=== PATIENT | male | born 1990 | race Caucasian/White ===

== ENCOUNTER 2018-04-06 06:12 | Emergency (ER) | payer BC, OTHER ==
--- NOTE | 2018-04-06 06:29 | EDM.PDOC ---
ED HPI GENERAL MEDICAL PROBLEM - General Chief Complaint: Skin Complaint Stated Complaint: BUMP ON LEFT LEG Time Seen by Provider: 04/06/18 06:24 Source of Information: Reports: Patient - History of Present Illness INITIAL COMMENTS - FREE TEXT/NARRATIVE: HISTORY AND PHYSICAL: History of present illness: [Patient presents with a small mass lesion approximately 1/2 inch in diameter on his left lower extremity anterior surface just above the ankle, lesion is slightly reddened and tender nonfluctuant, nondraining no exudates for culture. Lesion is clinically consistent with a lipoma with surrounding cellulitis, patient denies any injury or trauma. Lesion developed insidiously over the last 2 weeks No fever nausea vomiting chills sweats no chest pain shortness breath headache dizziness palpitation no bowel or urine symptoms] Review of systems: As per history of present illness and below otherwise all systems reviewed and negative. Past medical history: As per history of present illness and as reviewed below otherwise noncontributory. Surgical history: As per history of present illness and as reviewed below otherwise noncontributory. Social history: No reported history of drug or alcohol abuse. Family history: As per history of present illness and as reviewed below otherwise noncontributory. Physical exam: HEENT: Atraumatic, normocephalic, pupils reactive, negative for conjunctival pallor or scleral icterus, mucous membranes moist, throat clear, neck supple, nontender, trachea midline. Lungs: Clear to auscultation, breath sounds equal bilaterally, chest nontender. Heart: S1S2, regular, negative for clicks, rubs, or JVD. Abdomen: Soft, nondistended, nontender. Negative for masses or hepatosplenomegaly. Negative for costovertebral tenderness. Pelvis: Stable nontender. Genitourinary: Deferred. Rectal: Deferred. Extremities: Atraumatic, negative for cords or calf pain. Neurovascular unremarkable. Neuro: Awake, alert, oriented. Cranial nerves II through XII unremarkable. Cerebellum unremarkable. Motor and sensory unremarkable throughout. Exam nonfocal. Diagnostics: [Clinical ] Therapeutics: [Bactrim double strength by mouth twice a day #20 no refill ] Impression: [Mass lesion consistent with lipoma, right lower extremity Cellulitis ] Definitive disposition and diagnosis as appropriate pending reevaluation and review of above. left lower leg Pain Score (Numeric/FACES): 5 - Related Data Allergies Allergy/AdvReac Type Severity Reaction Status Date / Time No Known Allergies Allergy Verified 04/06/18 06:20 Home Meds: Home Meds Sertraline HCl [Zoloft] 100 mg PO DAILY 04/06/18 [History] ED ROS GENERAL - Review of Systems Review Of Systems: See Below ED EXAM, SKIN/RASH Exam: See Below Course - Vital Signs Last Recorded V/S: Last Vital Signs Temp 97 F 04/06/18 06:20 Pulse 96 04/06/18 06:20 Resp 18 04/06/18 06:20 BP 137/66 04/06/18 06:20 Pulse Ox 98 04/06/18 06:20 Departure - Departure Time of Disposition: 06:28 Disposition: Home, Self-Care 01 Condition: Good Clinical Impression: Cellulitis - Discharge Information Referrals: Ceferino Pereyra MD [Primary Care Provider] - Additional Instructions: Medication as prescribed Return if symptoms persist or worsen Follow-up with general surgery in 2 weeks for reevaluation and consideration of biopsy [facility] - General Surgery [address], [address] [place] [address] The following information is given to patients seen in the emergency department who are being discharged to home. This information is to outline your options for follow-up care. We provide all patients seen in our emergency department with a follow-up referral. The need for follow-up, as well as the timing and circumstances, are variable depending upon the specifics of your emergency department visit. If you don't have a primary care physician on staff, we will provide you with a referral. We always advise you to contact your personal physician following an emergency department visit to inform them of the circumstance of the visit and for follow-up with them and/or the need for any referrals to a consulting specialist. The emergency department will also refer you to a specialist when appropriate. This referral assures that you have the opportunity for follow-up care with a specialist. All of these measure are taken in an effort to provide you with optimal care, which includes your follow-up. Under all circumstances we always encourage you to contact your private physician who remains a resource for coordinating your care. When calling for follow-up care, please make the office aware that this follow-up is from your recent emergency room visit. If for any reason you are refused follow-up, please contact the [facility] emergency department at and asked to speak to the emergency department charge nurse.
== END 2018-04-06 06:36 | disposition home or self-care (01) ==
LOC: MW.ED 06:12
DX: L03.116 Cellulitis of left lower limb (principal); Z79.899 Other long term (current) drug therapy
CPT/HCPCS: 99283

== ENCOUNTER 2018-05-01 21:38 | Emergency (ER) | payer OTHER ==
[2018-05-01] MEDS ORDERED: Morphine 2 MG/ML Syringe IVPUSH ONE (22:12)
[2018-05-01] MEDS ORDERED: Ondansetron 4 MG/2 ML SDV IVPUSH ONE (22:12)
[2018-05-01] MEDS ORDERED: Sodium Chloride 0.9% 1,000 ML IV ONE (22:12)
[2018-05-01] MEDS ORDERED: Sodium Chloride 0.9% 10 ML Syringe FLUSH PRN (22:12)
[2018-05-01] MEDS ORDERED: Sodium Chloride 0.9% 2.5 ML Syringe FLUSH PRN (22:12)
--- NOTE | 2018-05-01 22:16 | EDM.PDOC ---
ED HPI GENERAL MEDICAL PROBLEM - General Stated Complaint: PT VOMITING Time Seen by Provider: 05/01/18 22:07 - History of Present Illness INITIAL COMMENTS - FREE TEXT/NARRATIVE: HISTORY AND PHYSICAL: History of present illness: The patient is a 28-year-old male with a history of a abnormal mass or cyst on his CT scan of the head diagnosed in [place] and 2016 who is now living here locally and following with Dr. Ceferino Pereyra at the [facility] and presents with headaches that he has every day but today he had more nausea and vomiting. The patient says he does have headaches every day and the fact that he had a headache all day today was not new or different but he said this seemed to be more intense than his typical headaches and he had nausea and some vomiting which is also atypical. The patient has a history of a cholecystectomy and appendectomy and has acid reflux for which he takes daily Nexium. The doctor at the [facility] has been working this up and trying to get his medical records to see what the next steps are in treating this and he has already had a sleep apnea test and a vision test and he was not scheduled for any more imaging such as a repeat head CT or an MRI of his brain. The patient denies any trauma and has no other systemic complaints such as fever chills cough runny nose sore throat abdominal pain or diarrhea. He says that he usually only uses over-the- counter medications for his headaches and was never prescribed anything stronger. He is here because of concerns that something new is happening with this cyst/mass. The patient denies any new visual changes numbness or weakness to his extremities gait disturbances dizziness or lightheadedness. Review of systems: As per history of present illness and below otherwise all systems reviewed and negative. Past medical history: As per history of present illness and as reviewed below otherwise noncontributory. Surgical history: As per history of present illness and as reviewed below otherwise noncontributory. Social history: No reported history of drug or alcohol abuse. Family history: As per history of present illness and as reviewed below otherwise noncontributory. Physical exam: General: Well-developed well-nourished mildly overweight man who is nontoxic and ambulated into the ED without distress. Vital signs are noted by me HEENT: Atraumatic, normocephalic, pupils reactive, negative for conjunctival pallor or scleral icterus, mucous membranes moist, throat clear, neck supple, nontender, trachea midline. Lungs: Clear to auscultation, breath sounds equal bilaterally, chest nontender. Heart: S1S2, regular, negative for clicks, rubs, or JVD. Abdomen: Soft, nondistended, nontender. Negative for masses or hepatosplenomegaly. Negative for costovertebral tenderness. Pelvis: Stable nontender. Genitourinary: Deferred. Rectal: Deferred. Extremities: Atraumatic, negative for cords or calf pain. Neurovascular unremarkable. Neuro: Awake, alert, oriented. Cranial nerves II through XII unremarkable. Cerebellum unremarkable. Motor and sensory unremarkable throughout. Exam nonfocal. Diagnostics: CT scan of the head CBC CMP Therapeutics: IV fluids morphine Zofran Discussed with the patient all testing results and the fact that the CT scan of the head is not showing any swelling midline shift or mass unlike his history. I told him that he needs to call Dr. Pereyra in the morning and get more testing such as an MRI to help further delineate his underlying process but at this point I feel he is comfortable to go home. I told him that if he would like to get an MRI more quickly he can go to [facility] as we do not have capabilities here in the evenings. He is comfortable with following up with Dr. Pereyra and I will give him some tramadol and Zofran for home. Impression: Headache with vomiting, history of chronic headaches and abnormal CT stable Definitive disposition and diagnosis as appropriate pending reevaluation and review of above. headache Pain Score (Numeric/FACES): 9 - Related Data Allergies Allergy/AdvReac Type Severity Reaction Status Date / Time No Known Allergies Allergy Verified 05/01/18 22:18 Home Meds: Home Meds Sertraline HCl [Zoloft] 100 mg PO DAILY 04/06/18 [History] Past Medical History HEENT History: Reports: None Cardiovascular History: Reports: None Respiratory History: Reports: None Gastrointestinal History: Reports: None Genitourinary History: Reports: None Musculoskeletal History: Reports: None Neurological History: Reports: None Psychiatric History: Reports: Anxiety, Depression Endocrine/Metabolic History: Reports: None Hematologic History: Reports: None Immunologic History: Reports: None Oncologic (Cancer) History: Reports: None Dermatologic History: Reports: None - Infectious Disease History Infectious Disease History: Reports: None - Past Surgical History Head Surgeries/Procedures: Reports: None Respiratory Surgical History: Reports: None GI Surgical History: Reports: Appendectomy, Cholecystectomy Musculoskeletal Surgical History: Reports: Carpal Tunnel Social & Family History - Family History Family Medical History: Noncontributory - Caffeine Use Caffeine Use: Reports: Coffee, Energy Drinks, Soda, Tea ED ROS GENERAL - Review of Systems Review Of Systems: ROS reveals no pertinent complaints other than HPI. ED EXAM, GENERAL - Physical Exam Exam: See Below (See dictation) Course - Vital Signs Last Recorded V/S: Last Vital Signs Temp 37.5 C 05/01/18 22:18 Pulse 77 05/01/18 23:02 Resp 18 05/01/18 23:02 BP 140/90 05/01/18 23:02 Pulse Ox 95 05/01/18 23:02 - Orders/Labs/Meds Orders: Active Orders 24 hr Category Date Time Status Sodium Chloride 0.9% [Saline Flush] Med 05/01/18 22:12 Active 10 ml FLUSH ASDIRECTED PRN Sodium Chloride 0.9% [Saline Flush] Med 05/01/18 22:12 Active 2.5 ml FLUSH ASDIRECTED PRN Saline Lock Insert [OM.PC] Stat Oth 05/01/18 22:12 Ordered Medication Orders Sodium Chloride (Saline Flush) 10 ml FLUSH ASDIRECTED PRN PRN Reason: Keep Vein Open Last Admin: 05/01/18 22:34 Dose: 10 ml Sodium Chloride (Saline Flush) 2.5 ml FLUSH ASDIRECTED PRN PRN Reason: Keep Vein Open Last Admin: 05/01/18 22:34 Dose: 2.5 ml Labs: Laboratory Tests 05/01/18 05/01/18 Range/Units 22:34 22:34 WBC 8.95 (4.0-11.0) K/uL RBC 5.41 (4.50-5.90) M/uL Hgb 16.0 (13.0-17.0) g/dL Hct 45.2 (38.0-50.0) % MCV 83.5 (80.0-98.0) fL MCH 29.6 (27.0-32.0) pg MCHC 35.4 (31.0-37.0) g/dL RDW Std Deviation 38.8 (28.0-62.0) fl RDW Coeff of Zach 13 (11.0-15.0) % Plt Count 266 (150-400) K/uL MPV 9.70 (7.40-12.00) fL Neut % (Auto) 56.9 (48.0-80.0) % Lymph % (Auto) 33.2 (16.0-40.0) % Loving % (Auto) 7.5 (0.0-15.0) % Eos % (Auto) 2.2 (0.0-7.0) % Baso % (Auto) 0.2 (0.0-1.5) % Neut # (Auto) 5.1 (1.4-5.7) K/uL Lymph # (Auto) 3.0 H (0.6-2.4) K/uL Loving # (Auto) 0.7 (0.0-0.8) K/uL Eos # (Auto) 0.2 (0.0-0.7) K/uL Baso # (Auto) 0.0 (0.0-0.1) K/uL Nucleated RBC % 0.0 /100WBC Nucleated RBCs # 0 K/uL Sodium 137 (136-148) mmol/L Potassium 3.7 (3.5-5.1) mmol/L Chloride 102 (98-107) mmol/L Carbon Dioxide 25.3 (21.0-32.0) mmol/L BUN 13 (7.0-18.0) mg/dL Creatinine 1.0 (0.8-1.3) mg/dL Est Cr Clr Drug Dosing 109.98 mL/min Estimated GFR (MDRD) > 60.0 ml/min Glucose 125 H (74-106) mg/dL Calcium 9.3 (8.5-10.1) mg/dL Total Bilirubin 0.5 (0.2-1.0) mg/dL AST 25 (15-37) IU/L ALT 60 (14-63) IU/L Alkaline Phosphatase 78 (46-116) U/L Total Protein 7.7 (6.4-8.2) g/dL Albumin 3.8 (3.4-5.0) g/dL Globulin 3.9 (2.6-4.0) g/dL Albumin/Globulin Ratio 1.0 (0.9-1.6) Meds: Medications Generic Name Dose Route Start Last Admin Trade Name Lala PRN Reason Stop Dose Admin Sodium Chloride 10 ml 05/01/18 22:12 05/01/18 22:34 Saline Flush FLUSH 10 ml ASDIRECTED PRN Administration Keep Vein Open Sodium Chloride 2.5 ml 05/01/18 22:12 05/01/18 22:34 Saline Flush FLUSH 2.5 ml ASDIRECTED PRN Administration Keep Vein Open Discontinued Medications Generic Name Dose Route Start Last Admin Trade Name Freq PRN Reason Stop Dose Admin Sodium Chloride 1,000 mls @ 999 mls/hr 05/01/18 22:12 05/01/18 22:33 Normal Saline IV 05/01/18 23:12 999 mls/hr STAT ONE Administration Morphine Sulfate 4 mg 05/01/18 22:12 05/01/18 22:33 Morphine IVPUSH 05/01/18 22:13 4 mg ONETIME ONE Administration Ondansetron HCl 4 mg 05/01/18 22:12 05/01/18 22:34 Zofran IVPUSH 05/01/18 22:13 4 mg ONETIME ONE Administration Departure - Departure Time of Disposition: 23:51 Disposition: Home, Self-Care 01 Condition: Good Clinical Impression: Headache Qualifiers: Headache type: unspecified Headache chronicity pattern: chronic headache Intractability: not intractable Qualified Code(s): R51 - Headache - Discharge Information Referrals: Ceferino Pereyra MD [Primary Care Provider] - Additional Instructions: The following information is given to patients seen in the emergency department who are being discharged to home. This information is to outline your options for follow-up care. We provide all patients seen in our emergency department with a follow-up referral. The need for follow-up, as well as the timing and circumstances, are variable depending upon the specifics of your emergency department visit. If you don't have a primary care physician on staff, we will provide you with a referral. We always advise you to contact your personal physician following an emergency department visit to inform them of the circumstance of the visit and for follow-up with them and/or the need for any referrals to a consulting specialist. The emergency department will also refer you to a specialist when appropriate. This referral assures that you have the opportunity for followup care with a specialist. All of these measure are taken in an effort to provide you with optimal care, which includes your followup. Under all circumstances we always encourage you to contact your private physician who remains a resource for coordinating your care. When calling for followup care, please make the office aware that this follow-up is from your recent emergency room visit. If for any reason you are refused follow-up, please contact the [facility] emergency department at and ask to speak to the emergency department charge nurse. [facility]- Internal Medicine and Family [address] [address] Push hydration and avoid caffeinated products and use medications given to you from [facility] Meds as needed and discussed. Please contact Dr. Pereyra at the clinic tomorrow or one of our providers to get further care and evaluation as we discussed. Return to ER as needed and as discussed - My Orders Last 24 Hours: My Active Orders 05/01/18 22:12 Sodium Chloride 0.9% [Saline Flush] 10 ml FLUSH ASDIRECTED PRN Sodium Chloride 0.9% [Saline Flush] 2.5 ml FLUSH ASDIRECTED PRN Saline Lock Insert [OM.PC] Stat - Assessment/Plan Last 24 Hours: My Active Orders 05/01/18 22:12 Sodium Chloride 0.9% [Saline Flush] 10 ml FLUSH ASDIRECTED PRN Sodium Chloride 0.9% [Saline Flush] 2.5 ml FLUSH ASDIRECTED PRN Saline Lock Insert [OM.PC] Stat
[2018-05-01 23:02] LABS: CHLORIDE,CL 102 mmol/L (98-107); SODIUM,NA 137 mmol/L (136-148)
--- NOTE | 2018-05-01 23:23 | CT ---
INDICATION: Headache TECHNIQUE: CT Head without i.v. contrast. COMPARISON: None FINDINGS: CSF space: The ventricles are normal for age. Brain: No evidence of mass, acute infarction or hemorrhage is seen. No mass-effect or midline shift is seen. The brain parenchyma is otherwise normal in appearance with preservation of the hernandez-white matter junction. Calvarium: The visualized paranasal sinuses are well aerated. The mastoid air cells are clear. The visualized orbits are grossly unremarkable. The calvarium is unremarkable in appearance with no fractures identified. IMPRESSION: 1. No evidence of acute infarction, intracranial hemorrhage, or mass-effect seen. Please note that all CT scans at this facility use dose modulation, iterative reconstruction, and/or weight-based dosing when appropriate to reduce radiation dose to as low as reasonably achievable. Dictated by: Marcus Lenz MD @ 05/01/2018 23:20:50 (Electronically Signed)
== END 2018-05-02 00:29 | disposition home or self-care (01) ==
LOC: MW.ED 21:38
DX: R51 Headache (principal); R11.2 Nausea with vomiting, unspecified
CPT/HCPCS: 36415; 70450; 80053; 85025; 96361; 96374; 96375; 99284; J2270; J2405; J7040

== ENCOUNTER 2018-06-04 09:36 | Emergency (ER) | payer BC, OTHER ==
--- NOTE | 2018-06-04 10:17 | EDM.PDOC ---
ED HPI GENERAL MEDICAL PROBLEM - General Chief Complaint: Upper Extremity Injury/Pain Stated Complaint: INJURED HAND Time Seen by Provider: 06/04/18 10:15 Source of Information: Reports: Patient - History of Present Illness INITIAL COMMENTS - FREE TEXT/NARRATIVE: HISTORY AND PHYSICAL: History of present illness: [Patient presents with history of falling on outstretched hands today his hand slipped under aerated lip of ice on the ground which caught his finger nail left third digit and for the nail off otherwise the patient complains of left shoulder pain has full range motion of the shoulder pain with movement there appears to be muscle spasm over the deltoid and left trapezius distribution No head injury or loss of consciousness no fever nausea vomiting chills sweats Review of systems: As per history of present illness and below otherwise all systems reviewed and negative. Past medical history: As per history of present illness and as reviewed below otherwise noncontributory. Surgical history: As per history of present illness and as reviewed below otherwise noncontributory. Social history: No reported history of drug or alcohol abuse. Family history: As per history of present illness and as reviewed below otherwise noncontributory. Physical exam: HEENT: Atraumatic, normocephalic, pupils reactive, negative for conjunctival pallor or scleral icterus, mucous membranes moist, throat clear, neck supple, nontender, trachea midline. Lungs: Clear to auscultation, breath sounds equal bilaterally, chest nontender. Heart: S1S2, regular, negative for clicks, rubs, or JVD. Abdomen: Soft, nondistended, nontender. Negative for masses or hepatosplenomegaly. Negative for costovertebral tenderness. Pelvis: Stable nontender. Genitourinary: Deferred. Rectal: Deferred. Extremities: Atraumatic, negative for cords or calf pain. Neurovascular unremarkable. Neuro: Awake, alert, oriented. Cranial nerves II through XII unremarkable. Cerebellum unremarkable. Motor and sensory unremarkable throughout. Exam nonfocal. Integument as per history of present illness Diagnostics: left hand 3 views Patient refused x-ray of the shoulder Therapeutics: [Tetanus status Toradol 60 IM sling for comfort rest ice Cataflam Flexeril Impression: [left hand injury Left shoulder injury/muscle spasm Definitive disposition and diagnosis as appropriate pending reevaluation and review of above. 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 Psychiatric History: Reports: Anxiety, Depression Endocrine/Metabolic History: Reports: None Hematologic History: Reports: None Immunologic History: Reports: None Oncologic (Cancer) History: Reports: None Dermatologic History: Reports: None - Infectious Disease History Infectious Disease History: Reports: Chicken Pox - Past Surgical History Head Surgeries/Procedures: Reports: None HEENT Surgical History: Reports: None Cardiovascular Surgical History: Reports: None Respiratory Surgical History: Reports: None GI Surgical History: Reports: Appendectomy, Cholecystectomy Male Surgical History: Reports: None Endocrine Surgical History: Reports: None Neurological Surgical History: Reports: None Musculoskeletal Surgical History: Reports: Carpal Tunnel Oncologic Surgical History: Reports: None Dermatological Surgical History: Reports: None Social & Family History - Family History Family Medical History: Noncontributory - Tobacco Use Smoking Status *Q: Never Smoker Second Hand Smoke Exposure: No - Caffeine Use Caffeine Use: Reports: Coffee, Energy Drinks, Soda, Tea - Recreational Drug Use Recreational Drug Use: No Review of Systems - Review of Systems Review Of Systems: See Below ED EXAM, GENERAL - Physical Exam Exam: See Below Course - Vital Signs Last Recorded V/S: Last Vital Signs Temp 97.2 F 06/04/18 09:55 Pulse 97 06/04/18 09:55 Resp 18 06/04/18 09:55 BP 157/91 H 06/04/18 09:55 Pulse Ox 94 L 06/04/18 09:55 - Orders/Labs/Meds Orders: Active Orders 24 hr Category Date Time Status Bacitracin [Bacitracin Oint] Med 06/04/18 14:00 Ordered 1 gm TOP TID Ketorolac [Toradol] Med 06/04/18 10:43 Once 60 mg IM ONETIME ONE Departure - Departure Time of Disposition: 10:48 Disposition: Home, Self-Care 01 Condition: Good Clinical Impression: Injury of left shoulder, Muscle spasm, Fingernail avulsion - Discharge Information Referrals: PCP,Unknown [Primary Care Provider] - Forms: ED Department Discharge Additional Instructions: Medication as prescribed Return if symptoms persist or worsen Follow-up with primary care in 2 weeks sooner as needed [facility] - Primary Care [address] [place] [id number] The following information is given to patients seen in the emergency department who are being discharged to home. This information is to outline your options for follow-up care. We provide all patients seen in our emergency department with a follow-up referral. The need for follow-up, as well as the timing and circumstances, are variable depending upon the specifics of your emergency department visit. If you don't have a primary care physician on staff, we will provide you with a referral. We always advise you to contact your personal physician following an emergency department visit to inform them of the circumstance of the visit and for follow-up with them and/or the need for any referrals to a consulting specialist. The emergency department will also refer you to a specialist when appropriate. This referral assures that you have the opportunity for follow-up care with a specialist. All of these measure are taken in an effort to provide you with optimal care, which includes your follow-up. Under all circumstances we always encourage you to contact your private physician who remains a resource for coordinating your care. When calling for follow-up care, please make the office aware that this follow-up is from your recent emergency room visit. If for any reason you are refused follow-up, please contact the [facility] emergency department at and asked to speak to the emergency department charge nurse. - My Orders Last 24 Hours: My Active Orders 06/04/18 10:43 Ketorolac [Toradol] 60 mg IM ONETIME ONE 06/04/18 14:00 Bacitracin [Bacitracin Oint] 1 gm TOP TID - Assessment/Plan Last 24 Hours: My Active Orders 06/04/18 10:43 Ketorolac [Toradol] 60 mg IM ONETIME ONE 06/04/18 14:00 Bacitracin [Bacitracin Oint] 1 gm TOP TID
--- NOTE | 2018-06-04 10:33 | CR ---
EXAMINATION: Left hand HISTORY: Pain COMPARISON: None TECHNIQUE: 3 views FINDINGS/IMPRESSION: There is no acute osseous abnormality, dislocation, or fracture. Bone mineralization and joint spaces are preserved. No soft tissue swelling. Radiocarpal alignment is normal.
[2018-06-04] MEDS ORDERED: Ketorolac 60 MG/2 ML SDV IM ONE (10:43)
[2018-06-04] MEDS ORDERED: Bacitracin Oint 1 GM U/D Packet TOP ONE (10:53)
[2018-06-04] MEDS ORDERED: Bacitracin Oint 28.35 GM Tube TOP SCH (14:00)
== END 2018-06-04 11:34 | disposition home or self-care (01) ==
LOC: MW.ED 09:36
DX: S49.92XA Unspecified injury of left shoulder and upper arm, initial encounter (principal); S69.92XA Unspecified injury of left wrist, hand and finger(s), initial encounter; W00.0XXA Fall on same level due to ice and snow, initial encounter
CPT/HCPCS: 73130; 96372; 99283; J1885

== ENCOUNTER 2018-09-01 21:59 | Emergency (ER) | payer BC, OTHER ==
[2018-09-01] MEDS ORDERED: Ketorolac 30 MG/ML SDV IVPUSH ONE (22:13)
[2018-09-01] MEDS ORDERED: Sodium Chloride 0.9% 1,000 ML IV ONE (22:13)
--- NOTE | 2018-09-01 22:24 | EDM.PDOC ---
ED HPI GENERAL MEDICAL PROBLEM - General Stated Complaint: TESTICULAR AND ABDOMEN PAIN Time Seen by Provider: 09/01/18 22:05 - History of Present Illness INITIAL COMMENTS - FREE TEXT/NARRATIVE: HISTORY AND PHYSICAL: History of present illness: Patient's 28-year-old male presents with concern of right-sided abdominal/flank pain with right testicular pain patient states that similar episodes in past patient also states he's had urolithiasis but states this is dissimilar to the prior episode. No fever chills nausea vomiting urethral discharge or history of STD or concern of such. Review of systems: As per history of present illness and below otherwise all systems reviewed and negative. Past medical history: As per history of present illness and as reviewed below otherwise noncontributory. Surgical history: As per history of present illness and as reviewed below otherwise noncontributory. Social history: No reported history of drug or alcohol abuse. Family history: As per history of present illness and as reviewed below otherwise noncontributory. Physical exam: HEENT: Atraumatic, normocephalic, pupils reactive, negative for conjunctival pallor or scleral icterus, mucous membranes moist, throat clear, neck supple, nontender, trachea midline. Lungs: Clear to auscultation, breath sounds equal bilaterally, chest nontender. Heart: S1S2, regular, negative for clicks, rubs, or JVD. Abdomen: Soft, nondistended, nontender. Negative for masses or hepatosplenomegaly. Negative for costovertebral tenderness. Pelvis: Stable nontender. Genitourinary: Positive cremasteric reflex noted some mild tenderness to testicles. No fluctuance no erythema no warmth no penile lesions or urethral discharge. Rectal: Deferred. Extremities: Atraumatic, negative for cords or calf pain. Neurovascular unremarkable. Neuro: Awake, alert, oriented. Cranial nerves II through XII unremarkable. Cerebellum unremarkable. Motor and sensory unremarkable throughout. Exam nonfocal. Diagnostics: CBC CMP UA GC chlamydia CT abdomen and pelvis Therapeutics: Saline 1 L bolus Toradol 30 mg IV Impression: #1 right-sided abdominal/testicular pain Definitive disposition and diagnosis as appropriate pending reevaluation and review of above. Right Scrotum Pain Score (Numeric/FACES): 10 - Related Data Allergies Allergy/AdvReac Type Severity Reaction Status Date / Time No Known Allergies Allergy Verified 09/01/18 22:10 Home Meds: Home Meds Sertraline HCl [Zoloft] 100 mg PO DAILY 04/06/18 [History] Non-Formulary Medication [NF Drug] 09/01/18 [History] Non-Formulary Medication [NF Drug] 09/01/18 [History] Omeprazole 20 mg PO DAILY 09/01/18 [History] Past Medical History HEENT History: Reports: None Cardiovascular History: Reports: None Respiratory History: Reports: None Gastrointestinal History: Reports: None Other Gastrointestinal History: Acid Reflux Genitourinary History: Reports: None Musculoskeletal History: Reports: None Neurological History: Reports: Other (See Below) 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 Psychiatric History: Reports: Anxiety, Depression Endocrine/Metabolic History: Reports: None Hematologic History: Reports: None Immunologic History: Reports: None Oncologic (Cancer) History: Reports: None Dermatologic History: Reports: None - Infectious Disease History Infectious Disease History: Reports: Chicken Pox - Past Surgical History Head Surgeries/Procedures: Reports: None HEENT Surgical History: Reports: None Cardiovascular Surgical History: Reports: None Respiratory Surgical History: Reports: None GI Surgical History: Reports: Appendectomy, Cholecystectomy Male Surgical History: Reports: None Endocrine Surgical History: Reports: None Neurological Surgical History: Reports: None Musculoskeletal Surgical History: Reports: Carpal Tunnel Oncologic Surgical History: Reports: None Dermatological Surgical History: Reports: None Social & Family History - Family History Family Medical History: Noncontributory - Caffeine Use Caffeine Use: Reports: Coffee, Energy Drinks, Soda, Tea ED ROS GENERAL - Review of Systems Review Of Systems: ROS reveals no pertinent complaints other than HPI. ED EXAM, GENERAL - Physical Exam Exam: See Below (See dictation) Course - Vital Signs Last Recorded V/S: Last Vital Signs Temp 36.1 C 09/01/18 22:03 Pulse 71 09/01/18 23:54 Resp 16 09/01/18 23:54 BP 149/104 H 09/01/18 23:54 Pulse Ox 95 09/01/18 23:54 - Orders/Labs/Meds Orders: Active Orders 24 hr Category Date Time Status Scrotal Duplex Ltd [US] Stat Exams 09/01/18 23:37 Taken Scrotum and Contents [US] Stat Exams 09/01/18 23:29 Taken CHLAMYDIA AND GONORRHEA BY TMA Routine Lab 09/01/18 22:25 Received Labs: Laboratory Tests 09/01/18 09/01/18 09/01/18 Range/Units 22:20 22:20 22:25 WBC 10.69 (4.0-11.0) K/uL RBC 5.21 (4.50-5.90) M/uL Hgb 15.3 (13.0-17.0) g/dL Hct 44.3 (38.0-50.0) % MCV 85.0 (80.0-98.0) fL MCH 29.4 (27.0-32.0) pg MCHC 34.5 (31.0-37.0) g/dL RDW Std Deviation 40.9 (28.0-62.0) fl RDW Coeff of Zach 13 (11.0-15.0) % Plt Count 273 (150-400) K/uL MPV 10.10 (7.40-12.00) fL Neut % (Auto) 57.2 (48.0-80.0) % Lymph % (Auto) 34.9 (16.0-40.0) % [place] % (Auto) 5.1 (0.0-15.0) % Eos % (Auto) 2.4 (0.0-7.0) % Baso % (Auto) 0.4 (0.0-1.5) % Neut # (Auto) 6.1 H (1.4-5.7) K/uL Lymph # (Auto) 3.7 H (0.6-2.4) K/uL [place] # (Auto) 0.6 (0.0-0.8) K/uL Eos # (Auto) 0.3 (0.0-0.7) K/uL Baso # (Auto) 0.0 (0.0-0.1) K/uL Nucleated RBC % 0.0 /100WBC Nucleated RBCs # 0 K/uL Sodium 138 (136-148) mmol/L Potassium 4.2 (3.5-5.1) mmol/L Chloride 103 (98-107) mmol/L Carbon Dioxide 28.0 (21.0-32.0) mmol/L BUN 14 (7.0-18.0) mg/dL Creatinine 1.1 (0.8-1.3) mg/dL Est Cr Clr Drug Dosing 99.98 mL/min Estimated GFR (MDRD) > 60.0 ml/min Glucose 104 (74-106) mg/dL Calcium 8.8 (8.5-10.1) mg/dL Total Bilirubin 0.3 (0.2-1.0) mg/dL AST 30 (15-37) IU/L ALT 67 H (14-63) IU/L Alkaline Phosphatase 81 (46-116) U/L Total Protein 7.7 (6.4-8.2) g/dL Albumin 3.9 (3.4-5.0) g/dL Globulin 3.8 (2.6-4.0) g/dL Albumin/Globulin Ratio 1.0 (0.9-1.6) Urine Color YELLOW Urine Appearance CLEAR Urine pH 7.0 (5.0-8.0) Ur Specific [place] 1.020 (1.001-1.035) Urine Protein NEGATIVE (NEGATIVE) mg/dL Urine Glucose (UA) NEGATIVE (NEGATIVE) mg/dL Urine Ketones NEGATIVE (NEGATIVE) mg/dL Urine Occult Blood NEGATIVE (NEGATIVE) Urine Nitrite NEGATIVE (NEGATIVE) Urine Bilirubin NEGATIVE (NEGATIVE) Urine Urobilinogen 1.0 (<2.0) EU/dL Ur Leukocyte Esterase NEGATIVE (NEGATIVE) Meds: Medications Discontinued Medications Generic Name Dose Route Start Last Admin Trade Name Freq PRN Reason Stop Dose Admin Sodium Chloride 1,000 mls @ 999 mls/hr 09/01/18 22:13 09/01/18 22:23 Normal Saline IV 09/01/18 23:13 999 mls/hr .Bolus ONE Administration Ketorolac Tromethamine 30 mg 09/01/18 22:13 09/01/18 22:24 Toradol IVPUSH 09/01/18 22:14 30 mg ONETIME ONE Administration Departure - Departure Time of Disposition: 01:06 Disposition: Home, Self-Care 01 Condition: Good Clinical Impression: Testicular pain - Discharge Information Referrals: Ceferino Pereyra MD [Primary Care Provider] - Additional Instructions: The following information is given to patients seen in the emergency department who are being discharged to home. This information is to outline your options for follow-up care. We provide all patients seen in our emergency department with a follow-up referral. The need for follow-up, as well as the timing and circumstances, are variable depending upon the specifics of your emergency department visit. If you don't have a primary care physician on staff, we will provide you with a referral. We always advise you to contact your personal physician following an emergency department visit to inform them of the circumstance of the visit and for follow-up with them and/or the need for any referrals to a consulting specialist. The emergency department will also refer you to a specialist when appropriate. This referral assures that you have the opportunity for followup care with a specialist. All of these measure are taken in an effort to provide you with optimal care, which includes your followup. Under all circumstances we always encourage you to contact your private physician who remains a resource for coordinating your care. When calling for followup care, please make the office aware that this follow-up is from your recent emergency room visit. If for any reason you are refused follow-up, please contact the [facility] emergency department at and asked to speak to the emergency department charge nurse. [facility] - Urology [address] [place] [id number] Doxycycline as prescribed athletic supporter as directed follow-up urology above motors as Tylenol as directed and return as needed as discussed - My Orders Last 24 Hours: My Active Orders 09/01/18 22:25 CHLAMYDIA AND GONORRHEA BY TMA Routine 09/01/18 23:29 Scrotum and Contents [US] Stat 09/01/18 23:37 Scrotal Duplex Ltd [US] Stat - Assessment/Plan Last 24 Hours: My Active Orders 09/01/18 22:25 CHLAMYDIA AND GONORRHEA BY TMA Routine 09/01/18 23:29 Scrotum and Contents [US] Stat 09/01/18 23:37 Scrotal Duplex Ltd [US] Stat
[2018-09-01 22:49] LABS: CHLORIDE,CL 103 mmol/L (98-107); SODIUM,NA 138 mmol/L (136-148)
--- NOTE | 2018-09-01 23:08 | CT ---
INDICATION: Right flank pain TECHNIQUE: CT abdomen and pelvis without contrast. COMPARISON: None available FINDINGS: Lower chest: Unremarkable. Liver: Hepatomegaly measuring 23.1 cm craniocaudally. Hepatic steatosis. Small nodular soft tissue densities along the posterior hepatic capsule, nonspecific Spleen: Unremarkable. Pancreas: Unremarkable. Gallbladder and bile ducts: Cholecystectomy. Adrenal glands: Unremarkable. Kidneys: No hydronephrosis or measurable urolithiasis. Few apparent miniscule renal pyramidal densities versus artifact. Increased attenuation in the renal pelves. GI tract: Unremarkable. Apparent post appendectomy changes. Vascular structures: Unremarkable. Lymph nodes: Unremarkable. Miscellaneous: No free air or significant free fluid. Pelvic Organs: A contracted bladder demonstrating apparent wall thickening. Unremarkable prostate. Bones: A disc osteophyte complex at L5-S1. IMPRESSION: No obstructive uropathy or measurable urolithiasis. Increased attenuation in the renal pelves. Bladder wall thickening, partially related to underdistention Correlate with urinalysis. Hepatomegaly and hepatic steatosis. Dictated by Hank Benz MD @ 09/01/2018 11:07:23 PM Please note that all CT scans at this facility use dose modulation, iterative reconstruction, and/or weight-based dosing when appropriate to reduce radiation dose to as low as reasonably achievable. Dictated by: Hank Benz MD @ 09/01/2018 23:07:27 (Electronically Signed)
--- NOTE | 2018-09-02 01:13 | US ---
INDICATION: RIGHT TESTICLE PAIN SCROTAL ULTRASOUND Multiple sonographic images of the scrotum were performed. The testes appear normal bilaterally, the right testis measuring 4.1 x 2.1 x 2.5 cm and the left testis measuring 3.3 x 2.6 x 2.8 cm. No intratesticular masses are seen. Intratesticular Doppler blood flow is demonstrated bilaterally. The epididymides are within normal limits. No significant hydroceles are identified. IMPRESSION: Normal scrotal ultrasound. DEV BRAND MD [employer] Dictated by Toni Brand MD @ 09/02/2018 1:11:01 AM Dictated by: Toni Brand MD @ 09/02/2018 01:11:35 (Electronically Signed)
--- NOTE | 2018-09-03 10:25 | US ---
EXAM DATE: 09/01/18 PATIENT'S AGE: 28 Patient: SILVINA WAGNER Facility: [facility] Site . Site : 1990 Study: US-Testicle [id number]/16/2019 12:20:30 AM Ordering Physician: Orlando Sierra Final Report: INDICATION: RIGHT TESTICLE PAIN SCROTAL ULTRASOUND Multiple sonographic images of the scrotum were performed. The testes appear normal bilaterally, the right testis measuring 4.1 x 2.1 x 2.5 cm and the left testis measuring 3.3 x 2.6 x 2.8 cm. No intratesticular masses are seen. Intratesticular Doppler blood flow is demonstrated bilaterally. The epididymides are within normal limits. No significant hydroceles are identified. IMPRESSION: Normal scrotal ultrasound. DEV BRAND MD [employer] [facility] Dictated by Toni Brand MD @ 09/02/2018 1:11:01 AM Dictated by: Toni Brand MD @ 09/02/2018 01:11:35 Signed by: Toni Brand MD @09/02/2018 1:11:35 AM (Electronic Signature) Report Signed by Proxy. ZANE
== END 2018-09-02 01:35 | disposition home or self-care (01) ==
LOC: MW.ED 21:59
DX: N50.811 Right testicular pain (principal); F41.9 Anxiety disorder, unspecified; F32.9 Major depressive disorder, single episode, unspecified; Z90.49 Acquired absence of other specified parts of digestive tract; Z79.899 Other long term (current) drug therapy
CPT/HCPCS: 36415; 74176; 76870; 80053; 81003; 85025; 87491; 87591; 93976; 96361; 96374; 99284; J1885; J7040; 99283

== ENCOUNTER 2019-08-28 06:40 | Day surgery (SDC) | payer OTHER ==
[~2019-08-28 06:40] MED LIST: Lactated Ringers 1,000 ML IV SCH
[2019-08-28] MEDS ORDERED: Midazolam 1 MG/ML 2 ML SDV ONE (06:56)
[2019-08-28] MEDS ORDERED: fentaNYL 100 MCG/2 ML SDV ONE (06:56)
[2019-08-28] MEDS ORDERED: Propofol 200 MG/20 ML SDV ONE (06:56)
[2019-08-28] MEDS ORDERED: Ketorolac 30 MG/ML SDV ONE (06:58)
[2019-08-28] MEDS ORDERED: Bupivacaine 0.5% 30 ML SDV ONE (07:18)
--- NOTE | 2019-08-28 07:21 | PCM.PREANE ---
Preanesthetic Assessment - Anesthesia/Transfusion/Family Hx Anesthesia History: Prior Anesthesia Without Reaction Transfusion History: No Prior Transfusion(s) - Physical Assessment NPO Status Date: 08/27/19 NPO Status Time: 22:00 Vital Signs: Last Vital Signs Temp 97.3 F 08/28/19 07:07 Pulse 87 08/28/19 07:07 Resp 16 08/28/19 07:07 BP 149/85 H 08/28/19 07:07 Pulse Ox 94 L 08/28/19 07:07 Height: 5 ft 9 in Weight: 123.377 kg - Allergies Allergies/Adverse Reactions: Allergies Allergy/AdvReac Type Severity Reaction Status Date / Time No Known Allergies Allergy Verified 08/22/19 08:15 PreAnesthesia Questionnaire HEENT History: Reports: Hard of Hearing, Other (See Below) Other HEENT History: wears glasses, will get hearing aides before surgery Cardiovascular History: Reports: None Respiratory History: Reports: Sleep Apnea Other Respiratory History: uses CPAP "whenever he is home" Gastrointestinal History: Reports: GERD Other Gastrointestinal History: Acid Reflux Genitourinary History: Reports: None Musculoskeletal History: Reports: None Neurological History: Reports: Head Trauma, Migraines Other Neuro History: receives Botox injections for migraines, 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 Psychiatric History: Reports: PTSD Endocrine/Metabolic History: Reports: Obesity/BMI 30+, Other (See Below) Other Endocrine/Metabolic History: had "part of thyroid removed" as a child because of swelling and airway obstruction Hematologic History: Reports: None Immunologic History: Reports: None Oncologic (Cancer) History: Reports: None Dermatologic History: Reports: None - Infectious Disease History Infectious Disease History: Reports: Chicken Pox - Past Surgical History Head Surgeries/Procedures: Reports: None HEENT Surgical History: Reports: None Cardiovascular Surgical History: Reports: None Respiratory Surgical History: Reports: None GI Surgical History: Reports: Appendectomy, Cholecystectomy Male Surgical History: Reports: None Endocrine Surgical History: Reports: None Neurological Surgical History: Reports: None Musculoskeletal Surgical History: Reports: Arthroscopic Knee, Carpal Tunnel Oncologic Surgical History: Reports: None Dermatological Surgical History: Reports: None - SUBSTANCE USE Smoking Status *Q: Current Every Day Smoker Tobacco Use Within Last Twelve Months: Snuff/Dip Recreational Drug Use History: No - HOME MEDS Home Medications: Home Meds Sertraline HCl [Zoloft] 200 mg PO DAILY 04/06/18 [History] Pantoprazole Sodium [Protonix] 40 mg PO DAILY 06/06/19 [History] - CURRENT (IN HOUSE) MEDS Current Meds: Current Medications Cefazolin Sodium/Dextrose 2 gm (/ Premix) 50 mls @ 100 mls/hr IV ONCALL [facility] PRN Reason: Excessive Vaginal Bleeding Lactated Ringer's (Ringers, Lactated) 1,000 mls @ 100 mls/hr IV ASDIRECTED [facility] Last Admin: 08/28/19 07:18 Dose: 100 mls/hr Discontinued Medications Fentanyl (Sublimaze) Confirm Administered Dose 100 mcg .ROUTE .STK-MED ONE Stop: 08/28/19 06:57 Ketorolac Tromethamine (Toradol) Confirm Administered Dose 30 mg .ROUTE .STK- MED ONE Stop: 08/28/19 06:59 Midazolam HCl (Versed 1 Mg/Ml) Confirm Administered Dose 2 mg .ROUTE .STK-MED ONE Stop: 08/28/19 06:57 Propofol (Diprivan 20 Ml) Confirm Administered Dose 200 mg .ROUTE .STK-MED ONE Stop: 08/28/19 06:57
[2019-08-28] MEDS ORDERED: Dexamethasone 4 MG/ML 5 ML MDV ONE (07:22)
[2019-08-28] MEDS ORDERED: Sodium Chloride 0.9% 20 ML ONE (07:40)
[2019-08-28] MEDS ORDERED: ceFAZolin 1 GM Vial ONE (07:40)
[2019-08-28] MEDS ORDERED: ceFAZolin 2 GM in Premix Bag 1 BAG IV SCH (08:00)
--- NOTE | 2019-08-28 08:33 | PCM.OPNOTE ---
- General Post-Op/Procedure Note Date of Surgery/Procedure: 08/28/19 Operative Procedure(s): right carpal tunnel release Pre Op Diagnosis: right carpal tunnel syndrome Post-Op Diagnosis: Same Anesthesia Technique: Local, MAC Primary Surgeon: Maycol Garcia Anesthesia Provider: ameya law in mLs: 5 Complications: None Condition: Good
--- NOTE | 2019-08-28 09:09 | PCM.POSTAN ---
POST ANESTHESIA ASSESSMENT - MENTAL STATUS Mental Status: Alert, Oriented - VITAL SIGNS Vital Signs: Last Vital Signs Temp 97.5 F 08/28/19 08:53 Pulse 83 08/28/19 08:53 Resp 14 08/28/19 08:53 BP 118/67 08/28/19 08:53 Pulse Ox 93 L 08/28/19 08:53 - RESPIRATORY Respiratory Status: Respiratory Rate WNL, Airway Patent, O2 Saturation Stable - CARDIOVASCULAR CV Status: Pulse Rate WNL, Blood Pressure Stable - GASTROINTESTINAL GI Status: No Symptoms - POST OP HYDRATION Hydration Status: Adequate & Stable
--- NOTE | 2019-08-28 09:10 | PCM48HPAN ---
Post Anesthesia Note - EVALUATION WITHIN 48HRS OF ANESTHETIC Vital Signs in Normal Range: Yes Patient Participated in Evaluation: Yes Respiratory Function Stable: Yes Airway Patent: Yes Cardiovascular Function Stable: Yes Hydration Status Stable: Yes Pain Control Satisfactory: Yes Nausea and Vomiting Control Satisfactory: Yes Mental Status Recovered: Yes Vital Signs: Last Vital Signs Temp 97.5 F 08/28/19 08:53 Pulse 83 08/28/19 08:53 Resp 14 08/28/19 08:53 BP 118/67 08/28/19 08:53 Pulse Ox 93 L 08/28/19 08:53
--- NOTE | 2019-08-28 11:57 | OR ---
SURGEON: Maycol Garcia DATE OF PROCEDURE: 08/28/2019 PREOPERATIVE DIAGNOSIS: Right carpal tunnel syndrome. POSTOPERATIVE DIAGNOSIS: Right carpal tunnel syndrome. PROCEDURE: Right carpal tunnel release. PRIMARY SURGEON: Maycol Garcia DO ANESTHESIA: MAC, local. FLUID: Lactated Ringer's solution. ESTIMATED BLOOD LOSS: 5 mL. COMPLICATIONS: None. SPECIMEN: None. DISCHARGE DISPOSITION: Stable to PACU. HISTORY AND INDICATIONS FOR THE PROCEDURE: The patient was seen preoperatively in the clinic. He had EMG confirmation of right carpal tunnel syndrome. Risks and goals of the procedure were explained to the patient. Informed consent was obtained. DETAILS OF PROCEDURE: The patient was seen preoperatively by myself and the Anesthesia staff in the preoperative holding area where the operative site was marked. He was brought to the operative suite by the Anesthesia staff where MAC sedation was administered. A well-padded tourniquet was placed on the right forearm. The right upper extremity was then prepped and draped in a sterile manner. Time-out was called identifying the correct patient, the correct procedure, the correct site, and that antibiotics had been given within appropriate period of time. The right upper extremity was then exsanguinated, tourniquet was raised to 200 mmHg and taken down after 9 minutes. Local anesthesia was then introduced along the incision line as well as proximal and distal along the course of the median nerve. An incision was made just proximal to Lopez's cardinal line in line with the first metacarpal and then proximally in line with the radial border of the fourth digit. A 15 blade was then used in addition to a self-retaining retractor to scrape away the subcutaneous fat down to level of the transverse carpal ligament, that was then incised with a 15 blade. I then used my small Metzenbaums to go proximally and distally above and below the deep palmar fascia, proximally and distally over the transverse carpal ligament. I then used a Ragnell and under direct visualization split the deep palmar fascia proximally and distally with the transverse carpal ligament. After this had been freed, the area was copiously irrigated with saline and then some Decadron was placed. Then, the incision was closed with 3 horizontal mattress sutures followed by Betadine-soaked Adaptic, fluffs, Kerlix, and an Mahamed wrap. The patient was then allowed to awaken from conscious sedation and taken to the PACU in stable condition. [id number] / MODL /[id number]
== END 2019-08-28 09:36 | disposition home or self-care (01) ==
LOC: MW.SDS 06:40
PROVIDERS: ATTEND Orthopaedic Surgery
DX: G56.01 Carpal tunnel syndrome, right upper limb (principal); F17.220 Nicotine dependence, chewing tobacco, uncomplicated; F32.9 Major depressive disorder, single episode, unspecified; K21.9 Gastro-esophageal reflux disease without esophagitis; E66.01 Morbid (severe) obesity due to excess calories; G43.709 Chronic migraine without aura, not intractable, without status migrainosus; Z79.899 Other long term (current) drug therapy; Z98.890 Other specified postprocedural states; Z68.41 Body mass index [BMI] 40.0-44.9, adult
CPT/HCPCS: 64721; J0690; J1100; J1885; J2250; J2704; J3010; J3490; J7120

== ENCOUNTER 2019-09-05 12:16 | Emergency (ER) | payer OTHER ==
[2019-09-05] MEDS ORDERED: LORazepam 2 MG/ML SDV IVPUSH ONE ×2 (12:21→12:47)
[2019-09-05] MEDS ORDERED: Sodium Chloride 0.9% 10 ML Syringe FLUSH PRN (12:26)
[2019-09-05] MEDS ORDERED: Sodium Chloride 0.9% 2.5 ML Syringe FLUSH PRN (12:26)
--- NOTE | 2019-09-05 12:57 | EDM.PDOC ---
ED HPI GENERAL MEDICAL PROBLEM - General Chief Complaint: Neuro Symptoms/Deficits Stated Complaint: BROUGHT VIA AMBULANCE Time Seen by Provider: 09/05/19 12:20 Source of Information: Reports: Patient, EMS - History of Present Illness INITIAL COMMENTS - FREE TEXT/NARRATIVE: History of present illness: After the patient had been here a while and had received some doses of benzodiazepines he was able to give me the history give more history than EMS originally provided. EMS tell me he was having chest pain this morning then began to see his menses for more than 5 minutes when they started giving Versed. Total of 20 minutes of intermittent seizure before he got here. He seized on arrival as well. It appeared to be a grand mal seizure. The patient now tells me he had chest pain since he got up. He got up suddenly this morning feeling short of breath like he could not breathe. Then he began to have chest pain which was persistent. Nothing made it better or worse. Then he began to feel dizzy and he does not remember exactly what happened after that. The patient has a history of traumatic brain injury but no history of seizures. [] Review of systems: As per history of present illness and below otherwise all systems reviewed and negative. Past medical history: As per history of present illness and as reviewed below otherwise noncontributory. Surgical history: As per history of present illness and as reviewed below otherwise noncontributory. Social history: No reported history of drug or alcohol abuse. Family history: As per history of present illness and as reviewed below otherwise noncontributory. Physical exam: HEENT: Atraumatic, normocephalic, pupils reactive, negative for conjunctival pallor or scleral icterus, mucous membranes moist, throat clear, neck supple, nontender, trachea midline. Lungs: Clear to auscultation, breath sounds equal bilaterally, chest nontender. Heart: S1S2, regular, negative for clicks, rubs, or JVD. Abdomen: Soft, nondistended, nontender. Negative for masses or hepatosplenomegaly. Negative for costovertebral tenderness. Pelvis: Stable nontender. Genitourinary: Deferred. Rectal: Deferred. Extremities: Atraumatic, negative for cords or calf pain. Neurovascular unremarkable. Neuro: Awake, alert, oriented. Cranial nerves II through XII unremarkable. Cerebellum unremarkable. Motor and sensory unremarkable throughout. Exam nonf ocal. Diagnostics: [] Therapeutics: [] Impression: [] Plan: [] Definitive disposition and diagnosis as appropriate pending reevaluation and review of above. 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: EKG - Related Data Allergies Allergy/AdvReac Type Severity Reaction Status Date / Time No Known Allergies Allergy Verified 09/05/19 12:47 Home Meds: Home Meds Sertraline HCl [Zoloft] 200 mg PO DAILY 04/06/18 [History] Pantoprazole Sodium [Protonix] 40 mg PO DAILY 06/06/19 [History] oxyCODONE HCl/Acetaminophen [Percocet 5-325 mg Tablet] 1 each PO TID PRN #21 tablet 08/28/19 [Rx] ALPRAZolam [Xanax] 0.5 mg PO QID PRN #14 tablet 09/05/19 [Rx] levETIRAcetam [Keppra] 500 mg PO BID #60 tab 09/05/19 [Rx] Past Medical History HEENT History: Reports: Hard of Hearing, Other (See Below) Other HEENT History: wears glasses, will get hearing aides before surgery Cardiovascular History: Reports: None Respiratory History: Reports: Sleep Apnea Other Respiratory History: uses CPAP "whenever he is home" Gastrointestinal History: Reports: GERD Other Gastrointestinal History: Acid Reflux Genitourinary History: Reports: None Musculoskeletal History: Reports: None Neurological History: Reports: Head Trauma, Migraines Other Neuro History: receives Botox injections for migraines, 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 Psychiatric History: Reports: PTSD Endocrine/Metabolic History: Reports: Obesity/BMI 30+, Other (See Below) Other Endocrine/Metabolic History: had "part of thyroid removed" as a child because of swelling and airway obstruction Hematologic History: Reports: None Immunologic History: Reports: None Oncologic (Cancer) History: Reports: None Dermatologic History: Reports: None - Infectious Disease History Infectious Disease History: Reports: Chicken Pox - Past Surgical History Head Surgeries/Procedures: Reports: None HEENT Surgical History: Reports: None Cardiovascular Surgical History: Reports: None Respiratory Surgical History: Reports: None GI Surgical History: Reports: Appendectomy, Cholecystectomy Male Surgical History: Reports: None Endocrine Surgical History: Reports: None Neurological Surgical History: Reports: None Musculoskeletal Surgical History: Reports: Arthroscopic Knee, Carpal Tunnel Oncologic Surgical History: Reports: None Dermatological Surgical History: Reports: None Social & Family History - Family History Family Medical History: Noncontributory - Tobacco Use Smoking Status *Q: Unknown Ever Smoked - Caffeine Use Caffeine Use: Reports: Coffee, Energy Drinks, Soda, Tea ED ROS GENERAL - Review of Systems Review Of Systems: Comprehensive ROS is negative, except as noted in HPI. ED EXAM, GENERAL - Physical Exam Exam: See Below Free Text/Narrative:: Physical exam as in the HPI section EKG INTERPRETATION EKG Date: 09/05/19 Rhythm: Other (Sinus tachycardia) [place]: Normal P-Wave: Present QRS: Normal ST-T: Other (Specific T abnormality) Comparison: Other: (No obvious injury or arrhythmia) Course - Vital Signs Last Recorded V/S: Last Vital Signs Temp 98.1 F 09/05/19 15:05 Pulse 97 09/05/19 15:29 Resp 20 09/05/19 15:29 BP 111/52 L 09/05/19 15:29 Pulse Ox 91 L 09/05/19 15:29 - Orders/Labs/Meds Orders: Active Orders 24 hr Category Date Time Status Admission Status [Patient Status] [ADT] Stat ADT 09/05/19 14:54 Active EKG Documentation Completion [RC] AM Care 09/05/19 12:26 Active Sodium Chloride 0.9% [Saline Flush] Med 09/05/19 12:26 Active 10 ml FLUSH ASDIRECTED PRN Sodium Chloride 0.9% [Saline Flush] Med 09/05/19 12:26 Active 2.5 ml FLUSH ASDIRECTED PRN Saline Lock Insert [OM.PC] Stat Oth 09/05/19 12:26 Ordered Medication Orders Sodium Chloride (Saline Flush) 10 ml FLUSH ASDIRECTED PRN PRN Reason: Keep Vein Open Sodium Chloride (Saline Flush) 2.5 ml FLUSH ASDIRECTED PRN PRN Reason: Keep Vein Open Labs: Laboratory Tests 09/05/19 09/05/19 09/05/19 Range/Units 12:27 12:27 12:27 WBC 11.60 H (4.0-11.0) K/uL RBC 5.37 (4.50-5.90) M/uL Hgb 15.8 (13.0-17.0) g/dL Hct 46.2 (38.0-50.0) % MCV 86.0 (80.0-98.0) fL MCH 29.4 (27.0-32.0) pg MCHC 34.2 (31.0-37.0) g/dL RDW Std Deviation 40.6 (28.0-62.0) fl RDW Coeff of Zach 13 (11.0-15.0) % Plt Count 292 (150-400) K/uL MPV 9.70 (7.40-12.00) fL Neut % (Auto) 53.1 (48.0-80.0) % Lymph % (Auto) 36.6 (16.0-40.0) % [place] % (Auto) 7.8 (0.0-15.0) % Eos % (Auto) 2.2 (0.0-7.0) % Baso % (Auto) 0.3 (0.0-1.5) % Neut # (Auto) 6.2 H (1.4-5.7) K/uL Lymph # (Auto) 4.2 H (0.6-2.4) K/uL [place] # (Auto) 0.9 H (0.0-0.8) K/uL Eos # (Auto) 0.3 (0.0-0.7) K/uL Baso # (Auto) 0.0 (0.0-0.1) K/uL Nucleated RBC % 0.0 /100WBC Nucleated RBCs # 0 K/uL Lactate (0.20-2.00) mmol/L Sodium 140 (136-148) mmol/L Potassium 3.8 (3.5-5.1) mmol/L Chloride 102 (98-107) mmol/L Carbon Dioxide 21.7 (21.0-32.0) mmol/L BUN 11 (7.0-18.0) mg/dL Creatinine 1.0 (0.8-1.3) mg/dL Est Cr Clr Drug Dosing 119.63 mL/min Estimated GFR (MDRD) > 60.0 ml/min Glucose 94 (74-106) mg/dL Calcium 8.7 (8.5-10.1) mg/dL Total Bilirubin 0.3 (0.2-1.0) mg/dL AST 40 H (15-37) IU/L ALT 81 H (14-63) IU/L Alkaline Phosphatase 80 (46-116) U/L Troponin I <0.050 (0.000-0.056) ng/mL Total Protein 8.1 (6.4-8.2) g/dL Albumin 4.2 (3.4-5.0) g/dL Globulin 3.9 (2.6-4.0) g/dL Albumin/Globulin Ratio 1.1 (0.9-1.6) Urine Opiates Screen (NEGATIVE) Ur Oxycodone Screen (NEGATIVE) Urine Methadone Screen (NEGATIVE) Ur Barbiturates Screen (NEGATIVE) Ur Phencyclidine Scrn (NEGATIVE) Ur Amphetamine Screen (NEGATIVE) U Methamphetamines Scrn (NEGATIVE) U Benzodiazepines Scrn (NEGATIVE) U Cocaine Metab Screen (NEGATIVE) U Marijuana (THC) Screen (NEGATIVE) Ethyl Alcohol <3 mg/dL 09/05/19 09/05/19 Range/Units 12:38 13:03 WBC (4.0-11.0) K/uL RBC (4.50-5.90) M/uL Hgb (13.0-17.0) g/dL Hct (38.0-50.0) % MCV (80.0-98.0) fL MCH (27.0-32.0) pg MCHC (31.0-37.0) g/dL RDW Std Deviation (28.0-62.0) fl RDW Coeff of Zach (11.0-15.0) % Plt Count (150-400) K/uL MPV (7.40-12.00) fL Neut % (Auto) (48.0-80.0) % Lymph % (Auto) (16.0-40.0) % [place] % (Auto) (0.0-15.0) % Eos % (Auto) (0.0-7.0) % Baso % (Auto) (0.0-1.5) % Neut # (Auto) (1.4-5.7) K/uL Lymph # (Auto) (0.6-2.4) K/uL [place] # (Auto) (0.0-0.8) K/uL Eos # (Auto) (0.0-0.7) K/uL Baso # (Auto) (0.0-0.1) K/uL Nucleated RBC % /100WBC Nucleated RBCs # K/uL Lactate 4.9 H* (0.20-2.00) mmol/L Sodium (136-148) mmol/L Potassium (3.5-5.1) mmol/L Chloride (98-107) mmol/L Carbon Dioxide (21.0-32.0) mmol/L BUN (7.0-18.0) mg/dL Creatinine (0.8-1.3) mg/dL Est Cr Clr Drug Dosing mL/min Estimated GFR (MDRD) ml/min Glucose (74-106) mg/dL Calcium (8.5-10.1) mg/dL Total Bilirubin (0.2-1.0) mg/dL AST (15-37) IU/L ALT (14-63) IU/L Alkaline Phosphatase (46-116) U/L Troponin I (0.000-0.056) ng/mL Total Protein (6.4-8.2) g/dL Albumin (3.4-5.0) g/dL Globulin (2.6-4.0) g/dL Albumin/Globulin Ratio (0.9-1.6) Urine Opiates Screen NEGATIVE (NEGATIVE) Ur Oxycodone Screen POSITIVE (NEGATIVE) Urine Methadone Screen NEGATIVE (NEGATIVE) Ur Barbiturates Screen NEGATIVE (NEGATIVE) Ur Phencyclidine Scrn NEGATIVE (NEGATIVE) Ur Amphetamine Screen NEGATIVE (NEGATIVE) U Methamphetamines Scrn NEGATIVE (NEGATIVE) U Benzodiazepines Scrn NEGATIVE (NEGATIVE) U Cocaine Metab Screen NEGATIVE (NEGATIVE) U Marijuana (THC) Screen NEGATIVE (NEGATIVE) Ethyl Alcohol mg/dL Meds: Medications Generic Name Dose Route Start Last Admin Trade Name Freq PRN Reason Stop Dose Admin Sodium Chloride 10 ml 09/05/19 12:26 Saline Flush FLUSH ASDIRECTED PRN Keep Vein Open Sodium Chloride 2.5 ml 09/05/19 12:26 Saline Flush FLUSH ASDIRECTED PRN Keep Vein Open Discontinued Medications Generic Name Dose Route Start Last Admin Trade Name Freq PRN Reason Stop Dose Admin Levetiracetam 1,000 mg/ 110 mls @ 440 mls/hr 09/05/19 12:30 09/05/19 12:50 Dextrose/Water IV 09/05/19 12:44 440 mls/hr ONETIME ONE Administration Sodium Chloride 1,000 mls @ 500 mls/hr 09/05/19 13:13 09/05/19 13:52 Normal Saline IV 09/05/19 15:12 500 mls/hr .Bolus ONE Administration Lorazepam 1 mg 09/05/19 12:21 09/05/19 12:22 Ativan IVPUSH 09/05/19 12:22 1 mg ONETIME ONE Administration Lorazepam 1 mg 09/05/19 12:47 09/05/19 12:50 Ativan IVPUSH 09/05/19 12:48 1 mg ONETIME ONE Administration Departure - Departure Time of Disposition: 15:32 Disposition: Home, Self-Care 01 Condition: Good Clinical Impression: New onset seizure, Hyperventilation - Discharge Information *PRESCRIPTION DRUG MONITORING PROGRAM REVIEWED*: Not Applicable *COPY OF PRESCRIPTION DRUG MONITORING REPORT IN PATIENT FOZIA: Not Applicable Prescriptions: levETIRAcetam [Keppra] 500 mg PO BID #60 tab ALPRAZolam [Xanax] 0.5 mg PO QID PRN #14 tablet PRN Reason: Anxiety Instructions: Epilepsy, [id number], Hyperventilation Referrals: Luis A Escobedo NP [Primary Care Provider] - Silvana Murphy MD [Physician] - Forms: ED Department Discharge Additional Instructions: The following information is given to patients seen in the emergency department who are being discharged to home. This information is to outline your options for follow-up care. We provide all patients seen in our emergency department with a follow-up referral. The need for follow-up, as well as the timing and circumstances, are variable depending upon the specifics of your emergency department visit. If you don't have a primary care physician on staff, we will provide you with a referral. We always advise you to contact your personal physician following an emergency department visit to inform them of the circumstance of the visit and for follow-up with them and/or the need for any referrals to a consulting specialist. The emergency department will also refer you to a specialist when appropriate. This referral assures that you have the opportunity for follow-up care with a specialist. All of these measure are taken in an effort to provide you with optimal care, which includes your follow-up. Under all circumstances we always encourage you to contact your private physician who remains a resource for coordinating your care. When calling for follow-up care, please make the office aware that this follow-up is from your recent emergency room visit. If for any reason you are refused follow-up, please contact the [facility] Emergency Department at and asked to speak to the emergency department charge nurse. [facility] [address] [place] [id number] [facility] [address] [place] [id number] Sepsis Event Note (ED) - Evaluation Sepsis Screening Result: No Definite Risk - Focused Exam Vital Signs: Vital Signs Temp Pulse Resp BP Pulse Ox 09/05/19 15:29 97 20 111/52 L 91 L 09/05/19 15:05 98.1 F 93 22 H 122/66 09/05/19 14:45 76 18 120/66 96 09/05/19 14:15 102 H 18 134/59 L 93 L 09/05/19 14:05 99 16 123/72 95 09/05/19 13:30 111 H 16 125/76 94 L 09/05/19 13:10 120 H 18 147/80 H 94 L 09/05/19 12:46 110 H 18 147/70 H 94 L 09/05/19 12:20 95.8 F L 105 H 30 H 140/86 95 - My Orders Last 24 Hours: My Active Orders 09/05/19 12:26 EKG Documentation Completion [RC] AM Sodium Chloride 0.9% [Saline Flush] 10 ml FLUSH ASDIRECTED PRN Sodium Chloride 0.9% [Saline Flush] 2.5 ml FLUSH ASDIRECTED PRN Saline Lock Insert [OM.PC] Stat 09/05/19 14:54 Admission Status [Patient Status] [ADT] Stat - Assessment/Plan Last 24 Hours: My Active Orders 09/05/19 12:26 EKG Documentation Completion [RC] AM Sodium Chloride 0.9% [Saline Flush] 10 ml FLUSH ASDIRECTED PRN Sodium Chloride 0.9% [Saline Flush] 2.5 ml FLUSH ASDIRECTED PRN Saline Lock Insert [OM.PC] Stat 09/05/19 14:54 Admission Status [Patient Status] [ADT] Stat
[2019-09-05 13:03] LABS: BLOOD UREA NITROGEN,BUN 11 mg/dL (7.0-18.0); CARBON DIOXIDE,CO2 21.7 mmol/L (21.0-32.0); CHLORIDE,CL 102 mmol/L (98-107); GLUCOSE RANDOM 94 mg/dL (74-106); POTASSIUM,K 3.8 mmol/L (3.5-5.1); SODIUM,NA 140 mmol/L (136-148)
[2019-09-05] MEDS ORDERED: Sodium Chloride 0.9% 1,000 ML IV ONE (13:13)
--- NOTE | 2019-09-05 13:49 | CR ---
Chest: AP view of the chest was obtained. Comparison: No prior chest x-ray. Heart size and mediastinum are normal. Lungs are clear. Bony structures are grossly intact. Impression: 1. Nothing acute is seen on frontal chest x-ray. Diagnostic code #1 Study was dictated in MDT
--- NOTE | 2019-09-05 13:58 | CT ---
Head CT Technique: Multiple axial sections through the brain were obtained. Intravenous contrast not utilized. Limitations: Motion artifact is noted. Comparison: No prior intracranial imaging is available. Findings: Within limitations caused by motion, no abnormal parenchymal densities are definitely seen. No evidence of intracranial hemorrhage. No midline shift or mass effect is seen. Bone window settings show no acute calvarial finding. Visualized mastoid sinuses and paranasal sinuses are grossly clear. Impression: 1. Motion artifact. Within this limitation, no gross abnormality is appreciated on noncontrast head CT study. Diagnostic code #2 Study was dictated in MDT
== END 2019-09-05 16:00 | disposition home or self-care (01) ==
LOC: MW.ED 12:16
DX: R56.9 Unspecified convulsions (principal); R06.4 Hyperventilation; K21.9 Gastro-esophageal reflux disease without esophagitis; E66.9 Obesity, unspecified; Z68.33 Body mass index [BMI] 33.0-33.9, adult; Z79.899 Other long term (current) drug therapy
CPT/HCPCS: 36415; 70450; 71045; 80053; 80305; 80307; 83605; 84484; 85025; 93005; 96361; 96374; 96375; 99285; J1953; J2060; J7030; J7060

== ENCOUNTER 2019-09-14 11:54 | Emergency (ER) | payer OTHER ==
[2019-09-14] MEDS ORDERED: Sodium Chloride 0.9% 10 ML Syringe FLUSH PRN (12:18)
[2019-09-14] MEDS ORDERED: Sodium Chloride 0.9% 1,000 ML IV ONE (12:18)
[2019-09-14] MEDS ORDERED: Sodium Chloride 0.9% 2.5 ML Syringe FLUSH PRN ×2 (12:18)
[2019-09-14] MEDS ORDERED: Ondansetron 4 MG/2 ML SDV IVPUSH ONE (12:18)
[2019-09-14] MEDS ORDERED: Morphine 2 MG/ML SYRINGE IVPUSH ONE (12:19)
[2019-09-14] MEDS ORDERED: Morphine 4 MG/ML Syringe IVPUSH PRN (12:19)
--- NOTE | 2019-09-14 12:22 | EDM.PDOC ---
ED HPI GENERAL MEDICAL PROBLEM - General Chief Complaint: Abdominal Pain Stated Complaint: SEVERE ABDOMEN PAIN. VOMITTING Time Seen by Provider: 09/14/19 12:13 - History of Present Illness INITIAL COMMENTS - FREE TEXT/NARRATIVE: History of present illness: [] Patient presents with a sudden onset of acute abdominal pain that was epigastric radiating into the right upper quadrant. Began this morning after eating previous history of appendectomy and cholecystectomy pain is severe constant sharp he got nauseous and vomited twice no fever no chills movement makes it worse being still makes it better. No dysuria no diarrhea he is passing gas today Review of systems: As per history of present illness and below otherwise all systems reviewed and negative. Past medical history: As per history of present illness and as reviewed below otherwise noncontributory. Surgical history: As per history of present illness and as reviewed below otherwise noncontributory. Social history: No reported history of drug or alcohol abuse. Family history: As per history of present illness and as reviewed below otherwise noncontributory. Physical exam: HEENT: Atraumatic, normocephalic, pupils reactive, negative for conjunctival pallor or scleral icterus, mucous membranes moist, throat clear, neck supple, nontender, trachea midline. Lungs: Clear to auscultation, breath sounds equal bilaterally, chest nontender. Heart: S1S2, regular, negative for clicks, rubs, or JVD. Abdomen: Rigid, nondistended, diffusely tender with guarding. Negative for masses or hepatosplenomegaly. Negative for costovertebral tenderness. Rebound tenderness is present Pelvis: Stable nontender. Genitourinary: Deferred. Rectal: Deferred. Extremities: Atraumatic, negative for cords or calf pain. Neurovascular unremarkable. Neuro: Awake, alert, oriented. Cranial nerves II through XII unremarkable. Cerebellum unremarkable. Motor and sensory unremarkable throughout. Exam nonfocal. Diagnostics: [] Therapeutics: [] Impression: Abdominal pain [] Plan: Medicate labs scan reassess [] Definitive disposition and diagnosis as appropriate pending reevaluation and review of above. right upper abdominal pain Pain Score (Numeric/FACES): 10 - Related Data Allergies Allergy/AdvReac Type Severity Reaction Status Date / Time No Known Allergies Allergy Verified 09/14/19 12:00 Home Meds: Home Meds Sertraline HCl [Zoloft] 200 mg PO DAILY 04/06/18 [History] levETIRAcetam [Keppra] 500 mg PO BID #60 tab 09/05/19 [Rx] Dicyclomine [Bentyl] 20 mg PO QIDACANDBED #30 tab 09/14/19 [Rx] Magnesium 30 mg PO DAILY 09/14/19 [History] Past Medical History HEENT History: Reports: Hard of Hearing, Other (See Below) Other HEENT History: wears glasses, will get hearing aides before surgery Cardiovascular History: Reports: None Respiratory History: Reports: Sleep Apnea Other Respiratory History: uses CPAP "whenever he is home" Gastrointestinal History: Reports: GERD Other Gastrointestinal History: Acid Reflux Genitourinary History: Reports: None Musculoskeletal History: Reports: None Neurological History: Reports: Head Trauma, Migraines, Seizure Other Neuro History: receives Botox injections for migraines, 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 Psychiatric History: Reports: PTSD Endocrine/Metabolic History: Reports: Obesity/BMI 30+, Other (See Below) Other Endocrine/Metabolic History: had "part of thyroid removed" as a child because of swelling and airway obstruction Hematologic History: Reports: None Immunologic History: Reports: None Oncologic (Cancer) History: Reports: None Dermatologic History: Reports: None - Infectious Disease History Infectious Disease History: Reports: None - Past Surgical History Head Surgeries/Procedures: Reports: None HEENT Surgical History: Reports: None Cardiovascular Surgical History: Reports: None Respiratory Surgical History: Reports: None GI Surgical History: Reports: Appendectomy, Cholecystectomy Male Surgical History: Reports: None Endocrine Surgical History: Reports: None Neurological Surgical History: Reports: None Musculoskeletal Surgical History: Reports: Arthroscopic Knee, Carpal Tunnel Oncologic Surgical History: Reports: None Dermatological Surgical History: Reports: None Social & Family History - Family History Family Medical History: Noncontributory - Tobacco Use Smoking Status *Q: Never Smoker - Caffeine Use Caffeine Use: Reports: Coffee - Recreational Drug Use Recreational Drug Use: No ED ROS GENERAL - Review of Systems Review Of Systems: See Below ED EXAM, GENERAL - Physical Exam Exam: See Below Course - Vital Signs Text/Narrative:: Patient was reexamined at 2:30 PM he is still very tender in the right upper quadrant CT was reviewed by myself radiology states there is nothing acute on the CT he does have hepato-steatosis ptosis that is chronic. Still in quite a bit of pain and add a GI cocktail Protonix and an ultrasound of the right upper quadrant. Dr. Walker at 2:35 PM she will consult on the patient. Dr Walker saw the patient at 3pm he is feeling better. She does not see anything on his CT scan and his exam has improved she is comfortable with him going home if he is improved on his pain. Examined the patient at 3:30 PM his tenderness is improving he would like to go home the medications have helped I will discharge him home on Bentyl he is to follow-up with his primary care doctor he is on Protonix at home he is to continue this medication. Encouraged to return to the ED over the weekend if he worsens Last Recorded V/S: Last Vital Signs Temp 36.3 C 09/14/19 12:01 Pulse 87 09/14/19 12:01 Resp 26 H 09/14/19 12:01 BP 149/87 H 09/14/19 12:01 Pulse Ox 98 09/14/19 12:01 - Orders/Labs/Meds Orders: Active Orders 24 hr Category Date Time Status NPO Now [Nothing per Oral Now Diet] [DIET] Diet 09/14/19 Dinner Active Morphine Med 09/14/19 12:19 Active 4 mg IVPUSH Q2H PRN Sodium Chloride 0.9% [Saline Flush] Med 09/14/19 12:18 Active 10 ml FLUSH ASDIRECTED PRN Sodium Chloride 0.9% [Saline Flush] Med 09/14/19 12:18 Active 2.5 ml FLUSH ASDIRECTED PRN Sodium Chloride 0.9% [Saline Flush] Med 09/14/19 12:18 Active 2.5 ml FLUSH ASDIRECTED PRN Saline Lock Insert [OM.PC] Stat Oth 09/14/19 12:18 Ordered Medication Orders Morphine Sulfate (Morphine) 4 mg IVPUSH Q2H PRN PRN Reason: Pain (moderate 4-6) Last Admin: 09/14/19 15:18 Dose: 4 mg Documented by: BAKEMOL Sodium Chloride (Saline Flush) 10 ml FLUSH ASDIRECTED PRN PRN Reason: Keep Vein Open Sodium Chloride (Saline Flush) 2.5 ml FLUSH ASDIRECTED PRN PRN Reason: Keep Vein Open Sodium Chloride (Saline Flush) 2.5 ml FLUSH ASDIRECTED PRN PRN Reason: Keep Vein Open Labs: Laboratory Tests 09/14/19 09/14/19 09/14/19 Range/Units 12:04 12:04 15:00 WBC 9.69 (4.0-11.0) K/uL RBC 5.75 (4.50-5.90) M/uL Hgb 17.0 (13.0-17.0) g/dL Hct 49.7 (38.0-50.0) % MCV 86.4 (80.0-98.0) fL MCH 29.6 (27.0-32.0) pg MCHC 34.2 (31.0-37.0) g/dL RDW Std Deviation 41.5 (28.0-62.0) fl RDW Coeff of Zach 13 (11.0-15.0) % Plt Count 318 (150-400) K/uL MPV 10.00 (7.40-12.00) fL Neut % (Auto) 46.4 L (48.0-80.0) % Lymph % (Auto) 42.2 H (16.0-40.0) % [place] % (Auto) 8.4 (0.0-15.0) % Eos % (Auto) 2.5 (0.0-7.0) % Baso % (Auto) 0.5 (0.0-1.5) % Neut # (Auto) 4.5 (1.4-5.7) K/uL Lymph # (Auto) 4.1 H (0.6-2.4) K/uL [place] # (Auto) 0.8 (0.0-0.8) K/uL Eos # (Auto) 0.2 (0.0-0.7) K/uL Baso # (Auto) 0.1 (0.0-0.1) K/uL Nucleated RBC % 0.0 /100WBC Nucleated RBCs # 0 K/uL Sodium 141 (136-148) mmol/L Potassium 3.8 (3.5-5.1) mmol/L Chloride 101 (98-107) mmol/L Carbon Dioxide 25.4 (21.0-32.0) mmol/L BUN 11 (7.0-18.0) mg/dL Creatinine 1.1 (0.8-1.3) mg/dL Est Cr Clr Drug Dosing 102.31 mL/min Estimated GFR (MDRD) > 60.0 ml/min Glucose 108 H (74-106) mg/dL Calcium 9.2 (8.5-10.1) mg/dL Total Bilirubin 0.8 (0.2-1.0) mg/dL AST 104 H (15-37) IU/L ALT 132 H (14-63) IU/L Alkaline Phosphatase 96 (46-116) U/L Total Protein 8.5 H (6.4-8.2) g/dL Albumin 4.4 (3.4-5.0) g/dL Globulin 4.1 H (2.6-4.0) g/dL Albumin/Globulin Ratio 1.1 (0.9-1.6) Lipase 169 (73-393) U/L Urine Color YELLOW Urine Appearance CLEAR Urine pH 6.0 (5.0-8.0) Ur Specific [place] 1.010 (1.001-1.035) Urine Protein NEGATIVE (NEGATIVE) mg/dL Urine Glucose (UA) NEGATIVE (NEGATIVE) mg/dL Urine Ketones NEGATIVE (NEGATIVE) mg/dL Urine Occult Blood NEGATIVE (NEGATIVE) Urine Nitrite NEGATIVE (NEGATIVE) Urine Bilirubin NEGATIVE (NEGATIVE) Urine Urobilinogen 0.2 (<2.0) EU/dL Ur Leukocyte Esterase NEGATIVE (NEGATIVE) Meds: Medications Generic Name Dose Route Start Last Admin Trade Name Seunq PRN Reason Stop Dose Admin Morphine Sulfate 4 mg 09/14/19 12:19 09/14/19 15:18 Morphine IVPUSH 4 mg Q2H PRN Administration Pain (moderate 4-6) Sodium Chloride 10 ml 09/14/19 12:18 Saline Flush FLUSH ASDIRECTED PRN Keep Vein Open Sodium Chloride 2.5 ml 09/14/19 12:18 Saline Flush FLUSH ASDIRECTED PRN Keep Vein Open Sodium Chloride 2.5 ml 09/14/19 12:18 Saline Flush FLUSH ASDIRECTED PRN Keep Vein Open Discontinued Medications Generic Name Dose Route Start Last Admin Trade Name Freq PRN Reason Stop Dose Admin Al Hydroxide/Mg Hydroxide 15 0 ml 09/14/19 14:36 09/14/19 15:44 ml/ Lidocaine HCl 5 ml PO 09/14/19 14:37 1 each ONETIME ONE Administration Sodium Chloride 1,000 mls @ 999 mls/hr 09/14/19 12:18 09/14/19 12:32 Normal Saline IV 09/14/19 13:18 999 mls/hr BOLUS ONE Administration Pantoprazole Sodium 40 mg/ 20 mls @ 420 mls/hr 09/14/19 14:36 09/14/19 15:44 Sodium Chloride IVPUSH 09/14/19 14:38 420 mls/hr ONETIME ONE Administration Iopamidol 100 ml 09/14/19 13:14 09/14/19 13:15 Isovue-300 (61%) IVPUSH 09/14/19 13:15 100 ml ONETIME STA Administration Morphine Sulfate 4 mg 09/14/19 12:19 09/14/19 12:34 Morphine IVPUSH 09/14/19 12:20 4 mg ONETIME ONE Administration Ondansetron HCl 4 mg 09/14/19 12:18 09/14/19 12:32 Zofran IVPUSH 09/14/19 12:19 4 mg ONETIME ONE Administration Departure - Departure Time of Disposition: 15:40 Disposition: Home, Self-Care 01 Condition: Good Clinical Impression: Abdominal pain Qualifiers: Abdominal location: generalized Qualified Code(s): R10.84 - Generalized abdo lam pain - Discharge Information *PRESCRIPTION DRUG MONITORING PROGRAM REVIEWED*: Not Applicable *COPY OF PRESCRIPTION DRUG MONITORING REPORT IN PATIENT FOZIA: Not Applicable Instructions: Abdominal Pain, Adult, [id number] Referrals: Luis A Escobedo EDUCATION REPORTER [Primary Care Provider] - Forms: ED Department Discharge Additional Instructions: The following information is given to patients seen in the emergency department who are being discharged to home. This information is to outline your options for follow-up care. We provide all patients seen in our emergency department with a follow-up referral. The need for follow-up, as well as the timing and circumstances, are variable depending upon the specifics of your emergency department visit. If you don't have a primary care physician on staff, we will provide you with a referral. We always advise you to contact your personal physician following an emergency department visit to inform them of the circumstance of the visit and for follow-up with them and/or the need for any referrals to a consulting specialist. The emergency department will also refer you to a specialist when appropriate. This referral assures that you have the opportunity for follow-up care with a specialist. All of these measure are taken in an effort to provide you with optimal care, which includes your follow-up. Under all circumstances we always encourage you to contact your private physic fernanda who remains a resource for coordinating your care. When calling for follow- up care, please make the office aware that this follow-up is from your recent emergency room visit. If for any reason you are refused follow-up, please contact the [facility] Emergency Department at and asked to speak to the emergency department charge nurse. Sepsis Event Note (ED) - Evaluation Sepsis Screening Result: No Definite Risk - Focused Exam Vital Signs: Vital Signs Temp Pulse Resp BP Pulse Ox 09/14/19 12:01 36.3 C 87 26 H 149/87 H 98 - My Orders Last 24 Hours: My Active Orders 09/14/19 12:18 Sodium Chloride 0.9% [Saline Flush] 10 ml FLUSH ASDIRECTED PRN Sodium Chloride 0.9% [Saline Flush] 2.5 ml FLUSH ASDIRECTED PRN Sodium Chloride 0.9% [Saline Flush] 2.5 ml FLUSH ASDIRECTED PRN Saline Lock Insert [OM.PC] Stat 09/14/19 12:19 Morphine 4 mg IVPUSH Q2H PRN 09/14/19 Dinner NPO Now [Nothing per Oral Now Diet] [DIET] - Assessment/Plan Last 24 Hours: My Active Orders 09/14/19 12:18 Sodium Chloride 0.9% [Saline Flush] 10 ml FLUSH ASDIRECTED PRN Sodium Chloride 0.9% [Saline Flush] 2.5 ml FLUSH ASDIRECTED PRN Sodium Chloride 0.9% [Saline Flush] 2.5 ml FLUSH ASDIRECTED PRN Saline Lock Insert [OM.PC] Stat 09/14/19 12:19 Morphine 4 mg IVPUSH Q2H PRN 09/14/19 Dinner NPO Now [Nothing per Oral Now Diet] [DIET]
[2019-09-14 12:35] LABS: BLOOD UREA NITROGEN,BUN 11 mg/dL (7.0-18.0); CARBON DIOXIDE,CO2 25.4 mmol/L (21.0-32.0); CHLORIDE,CL 101 mmol/L (98-107); GLUCOSE RANDOM 108 mg/dL (74-106); LIPASE 169 U/L (73-393); POTASSIUM,K 3.8 mmol/L (3.5-5.1); SODIUM,NA 141 mmol/L (136-148)
[2019-09-14] MEDS ORDERED: Iopamidol 612 MG/ML 100 ML Bottle IVPUSH STA (13:14)
--- NOTE | 2019-09-14 13:48 | CT ---
INDICATION: Upper abd pain. Has had GB and appy [id number] ml Isovue 300 @ 3ml/s603 images HISTORY: Upper abdominal pain. Prior appendectomy/cholecystectomy. COMPARISON: CT of the abdomen and pelvis, 09/01/2018. TECHNIQUE: CT of the abdomen and pelvis. 100 cc of Isovue-300 IV. Coronal/sagittal reconstruction images. FINDINGS: Lung bases: There is no pleural or pericardial effusion. The heart size is normal. There is mild dependent atelectasis. There is no acute airspace disease. There is no basilar pneumothorax. Abdomen/pelvis: There is diffuse hepatic steatosis. Hepatomegaly. This is unchanged from previous. There is no solid hepatic mass. There is stable nodular contour or of segment of the liver, likely benign, measuring 13 mm in image 50, series 201. There are symmetric nephrograms. There is no solid renal mass. There is no perinephric fluid collection. There is a benign calcification in the hepatorenal fossa, stable, and unchanged. No perinephric fluid collection. No adrenal mass. The spleen size is normal. There is no pancreatic mass, pancreatic duct dilation, or glandular atrophy. There is no free air. Pelvic phleboliths. There is no wall thickening within the small bowel or colon. There is no perienteric edema. There is no mucosal hyper enhancement. No evidence for a small bowel or colonic obstruction. Nonenlarged lymph nodes in the pelvis. No pelvic sidewall lymphadenopathy. The retroperitoneum and gastrohepatic ligament are normal. The visceral artery branches are widely patent. The bone windows demonstrate small sclerotic foci within the pelvis and proximal femora. These are most likely benign bone islands. There are no suspicious bone lesions by CT. The vertebral body heights are maintained on sagittal reconstruction images. IMPRESSION: 1. No acute findings are seen to explain the patient`s abdominal pain. 2. There is no gastric or duodenal wall thickening. 3. Uniform enhancement of the pancreas. No peripancreatic fluid collection. 4. Prior cholecystectomy and appendectomy. 5. Diffuse hepatic steatosis with hepatomegaly, stable. Dictated by Jcarlos Carr MD @ 09/14/2019 1:46:37 PM Please note that all CT scans at this facility use dose modulation, iterative reconstruction, and/or weight-based dosing when appropriate to reduce radiation dose to as low as reasonably achievable. Dictated by: Jcarlos Carr MD @ 09/14/2019 13:47:12 (Electronically Signed)
[2019-09-14] MEDS ORDERED: Pantoprazole 40 MG in Sodium Chloride 0.9% 20 ML IVPUSH ONE (14:36)
[2019-09-14] MEDS ORDERED: Alum Hydrox/Mag Hydrox/Simeth 15 ML, Lidocaine 2% 5 ML PO ONE ×2 (14:36)
--- NOTE | 2019-09-14 15:20 | PCM.CONS ---
H&P History of Present Illness - General Date of Service: 09/14/19 Source of Information: Patient History Limitations: Reports: No Limitations - History of Present Illness Initial Comments - Free Text/Narative: Patient is a 29 year old male who presents with an acute onset of RUQ pain. His past medical history is significant for seizures, acid reflux as well as s/p cholecystectomy and appendectomy. He ate breakfast this morning and immediately developed severe RUQ pain. He felt nauseated and vomited twice. He denied fevers and chills. He denies any travel, dietary changes, or infectious contacts. He denies hematemesis, hematochezia, or melena. He was tachycardic and slightly elevated. He was afebrile. His CBC showed no decreased Hgb or elevated WBC. His AST and ALT were slightly elevated. Lipase was normal. CT scan was normal other than hepatomegaly. RUQ US is normal. He received IV MS 4mg which resolved his pain. It is slowly coming back. right upper abdominal pain Pain Score (Numeric/FACES): 10 - Related Data Allergies/Adverse Reactions: Allergies Allergy/AdvReac Type Severity Reaction Status Date / Time No Known Allergies Allergy Verified 09/14/19 12:00 Home Medications: Home Meds Sertraline HCl [Zoloft] 200 mg PO DAILY 04/06/18 [History] levETIRAcetam [Keppra] 500 mg PO BID #60 tab 09/05/19 [Rx] Magnesium 30 mg PO DAILY 09/14/19 [History] Past Medical History HEENT History: Reports: Hard of Hearing, Other (See Below) Other HEENT History: wears glasses, will get hearing aides before surgery Cardiovascular History: Reports: None Respiratory History: Reports: Sleep Apnea Other Respiratory History: uses CPAP "whenever he is home" Gastrointestinal History: Reports: GERD Other Gastrointestinal History: Acid Reflux Genitourinary History: Reports: None Musculoskeletal History: Reports: None Neurological History: Reports: Head Trauma, Migraines, Seizure Other Neuro History: receives Botox injections for migraines, 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 Psychiatric History: Reports: PTSD Endocrine/Metabolic History: Reports: Obesity/BMI 30+, Other (See Below) Other Endocrine/Metabolic History: had "part of thyroid removed" as a child because of swelling and airway obstruction Hematologic History: Reports: None Immunologic History: Reports: None Oncologic (Cancer) History: Reports: None Dermatologic History: Reports: None - Infectious Disease History Infectious Disease History: Reports: None - Past Surgical History Head Surgeries/Procedures: Reports: None HEENT Surgical History: Reports: None Cardiovascular Surgical History: Reports: None Respiratory Surgical History: Reports: None GI Surgical History: Reports: Appendectomy, Cholecystectomy Male Surgical History: Reports: None Endocrine Surgical History: Reports: None Neurological Surgical History: Reports: None Musculoskeletal Surgical History: Reports: Arthroscopic Knee, Carpal Tunnel Oncologic Surgical History: Reports: None Dermatological Surgical History: Reports: None Social & Family History - Family History Family Medical History: Noncontributory - Tobacco Use Smoking Status *Q: Never Smoker - Caffeine Use Caffeine Use: Reports: Coffee - Recreational Drug Use Recreational Drug Use: No H&P Review of Systems - Review of Systems: Review Of Systems: Comprehensive ROS is negative, except as noted in HPI. Exam - Exam Exam: See Below - Vital Signs Vital Signs: Last Vital Signs Temp 36.3 C 09/14/19 12:01 Pulse 87 09/14/19 12:01 Resp 26 H 09/14/19 12:01 BP 149/87 H 09/14/19 12:01 Pulse Ox 98 09/14/19 12:01 Weight: 102.058 kg - Exam General: Alert, Oriented HEENT: Conjunctiva Clear, Mucosa Moist & [place], Posterior Pharynx Clear Neck: Supple, Trachea Midline Lungs: Clear to Auscultation, Normal Respiratory Effort Cardiovascular: Regular Rate, Regular Rhythm GI/Abdominal Exam: Soft, No Distention, Tender (RUQ). No: Guarding, Rigid, Sherron ound Extremities: Normal Inspection - Patient Data Lab Results Last 24 hrs: Laboratory Results - last 24 hr 09/14/19 09/14/19 09/14/19 Range/Units 12:04 12:04 15:00 WBC 9.69 (4.0-11.0) K/uL RBC 5.75 (4.50-5.90) M/uL Hgb 17.0 (13.0-17.0) g/dL Hct 49.7 (38.0-50.0) % MCV 86.4 (80.0-98.0) fL MCH 29.6 (27.0-32.0) pg MCHC 34.2 (31.0-37.0) g/dL RDW Std Deviation 41.5 (28.0-62.0) fl RDW Coeff of Zach 13 (11.0-15.0) % Plt Count 318 (150-400) K/uL MPV 10.00 (7.40-12.00) fL Neut % (Auto) 46.4 L (48.0-80.0) % Lymph % (Auto) 42.2 H (16.0-40.0) % [place] % (Auto) 8.4 (0.0-15.0) % Eos % (Auto) 2.5 (0.0-7.0) % Baso % (Auto) 0.5 (0.0-1.5) % Neut # (Auto) 4.5 (1.4-5.7) K/uL Lymph # (Auto) 4.1 H (0.6-2.4) K/uL [place] # (Auto) 0.8 (0.0-0.8) K/uL Eos # (Auto) 0.2 (0.0-0.7) K/uL Baso # (Auto) 0.1 (0.0-0.1) K/uL Nucleated RBC % 0.0 /100WBC Nucleated RBCs # 0 K/uL Sodium 141 (136-148) mmol/L Potassium 3.8 (3.5-5.1) mmol/L Chloride 101 (98-107) mmol/L Carbon Dioxide 25.4 (21.0-32.0) mmol/L BUN 11 (7.0-18.0) mg/dL Creatinine 1.1 (0.8-1.3) mg/dL Est Cr Clr Drug Dosing 102.31 mL/min Estimated GFR (MDRD) > 60.0 ml/min Glucose 108 H (74-106) mg/dL Calcium 9.2 (8.5-10.1) mg/dL Total Bilirubin 0.8 (0.2-1.0) mg/dL AST 104 H (15-37) IU/L ALT 132 H (14-63) IU/L Alkaline Phosphatase 96 (46-116) U/L Total Protein 8.5 H (6.4-8.2) g/dL Albumin 4.4 (3.4-5.0) g/dL Globulin 4.1 H (2.6-4.0) g/dL Albumin/Globulin Ratio 1.1 (0.9-1.6) Lipase 169 (73-393) U/L Urine Color YELLOW Urine Appearance CLEAR Urine pH 6.0 (5.0-8.0) Ur Specific [place] 1.010 (1.001-1.035) Urine Protein NEGATIVE (NEGATIVE) mg/dL Urine Glucose (UA) NEGATIVE (NEGATIVE) mg/dL Urine Ketones NEGATIVE (NEGATIVE) mg/dL Urine Occult Blood NEGATIVE (NEGATIVE) Urine Nitrite NEGATIVE (NEGATIVE) Urine Bilirubin NEGATIVE (NEGATIVE) Urine Urobilinogen 0.2 (<2.0) EU/dL Ur Leukocyte Esterase NEGATIVE (NEGATIVE) Result Diagrams: 09/14/19 12:04 09/14/19 12:04 Sepsis Event Note - Evaluation Sepsis Screening Result: No Definite Risk - Focused Exam Vital Signs: Vital Signs Temp Pulse Resp BP Pulse Ox 09/14/19 12:01 36.3 C 87 26 H 149/87 H 98 Date Exam was Performed: 09/14/19 Time Exam was Performed: 15:28 Consult PN Assessment/Plan Procedures: Procedures ASSAY OF LACTIC ACID (09/05/19) ASSAY OF TROPONIN QUANT (09/05/19) CARPAL TUNNEL SURGERY (08/28/19) CHYLMD TRACH DNA AMP PROBE (09/01/18) COMPLETE CBC W/AUTO DIFF WBC (09/05/19) COMPREHEN METABOLIC PANEL (09/05/19) CT ABD & PELVIS W/O CONTRAST (09/01/18) CT HEAD/BRAIN W/O DYE (09/05/19) DRUG TEST PRSMV CHEM ANLYZR (09/05/19) DRUG TEST PRSMV DIR OPT OBS (09/05/19) ELECTROCARDIOGRAM TRACING (09/05/19) EMERGENCY DEPT VISIT (09/05/19) EMERGENCY DEPT VISIT (09/01/18) EMERGENCY DEPT VISIT (06/04/18) EMERGENCY DEPT VISIT (05/01/18) EMERGENCY DEPT VISIT (04/06/18) HYDRATE IV INFUSION ADD-ON (09/05/19) N.GONORRHOEAE DNA AMP PROB (09/01/18) POLYSOM 6/> YRS 4/> PRANEETH (04/05/18) ROUTINE VENIPUNCTURE (09/05/19) SARS-COV2 COVID-19 AMP PRB (08/27/19) THER/PROPH/DIAG INJ IV PUSH (09/05/19) THER/PROPH/DIAG INJ SC/IM (06/04/18) TX/PRO/DX INJ NEW DRUG ADDON (09/05/19) URINALYSIS AUTO W/O SCOPE (09/01/18) US COMPL JOINT R-T W/IMG (05/01/18) US EXAM SCROTUM (09/01/18) VASCULAR STUDY (09/01/18) X-RAY EXAM CHEST 1 VIEW (09/05/19) X-RAY EXAM CHEST 2 VIEWS (09/27/18) X-RAY EXAM OF HAND (06/04/18) X-RAY EXAM OF KNEE 3 (06/18/18) X-RAY EXAM OF LOWER LEG (09/27/18) X-RAY EXAM OF WRIST (05/28/19) (1) RUQ abdominal pain SNOMED Code(s): 626892871 Code(s): R10.11 - RIGHT UPPER QUADRANT PAIN Current Visit: Yes Problem List Initiated/Reviewed/Updated: Yes Plan: Patient could have PUD or H pylori infection causing his RUQ pain. It could also be a viral GI bug. At this point, there are no acute surgical issues. Recommend IV protonix 40mg and GI cocktail. If pain does not improve, the patient could be admitted to medicine for further work up as well as IVF, IV pain control, and npo. Could also get stool studies as well as occult blood and H pylori antigen testing. Will continue to follow if admitted.
--- NOTE | 2019-09-14 15:23 | US ---
INDICATION: Right upper quadrant pain. TECHNIQUE: Conventional two-dimensional grayscale ultrasound of the abdomen. COMPARISON: None. FINDINGS: The gallbladder has been removed. No biliary ductal dilation is evident. The common bile duct measures 4 mm. Fatty change is demonstrated in the liver. The liver is otherwise unremarkable. The spleen is within normal limits. The kidneys are normal in appearance, with no evidence of hydronephrosis. The pancreas is obscured by gas. The visualized portion of the abdominal aorta and inferior vena cava are unremarkable. IMPRESSION: 1. Post cholecystectomy. 2. Fatty liver. 2. Pancreas obscured by gas. Dictated by Joseph Lainez MD @ Sep 14 2019 3:17PM Signed by Dr. Joseph Lainez @ Sep 14 2019 3:21PM
== END 2019-09-14 16:06 | disposition home or self-care (01) ==
LOC: MW.ED 11:54
DX: R10.84 Generalized abdominal pain (principal); R56.9 Unspecified convulsions; E66.9 Obesity, unspecified; Z68.32 Body mass index [BMI] 32.0-32.9, adult; Z79.899 Other long term (current) drug therapy
CPT/HCPCS: 36415; 74177; 76700; 80053; 81003; 83690; 85025; 93005; 96361; 96374; 96375; 96376; 99284; A9270; C9113; J2270; J2405; J7030; Q9967; 99283